=== PATIENT | female | born 1955 ===

== ENCOUNTER 2017-07-19 09:09 | Emergency (ER) | payer MEDICARE ==
[2017-07-19 09:10] VITALS: BMI 24.3
--- NOTE | 2017-07-19 09:51 | C.PDOC ---
History Of Present Illness 62 y/o female with hx hiv, (cd4 >200), past hx of renal failure, on hd for 8 months in 2015, c/o bilateral flank/lower rib cage pain pain x 1 week that is getting worse. no n/v/d, no fever or chills, no cough or sob. pt c/o generalized weakness. Time Seen by Provider: 07/19/17 09:30 Chief Complaint (Nursing): Abdominal Pain History Per: Patient History/Exam Limitations: no limitations Onset/Duration Of Symptoms: Days Current Symptoms Are (Timing): Still Present Past Medical History Reviewed: Historical Data, Nursing Documentation, Vital Signs Vital Signs: Last Vital Signs Temp 98.6 F 07/19/17 12:27 Pulse 62 07/19/17 12:27 Resp 18 07/19/17 12:27 BP 99/64 L 07/19/17 12:27 Pulse Ox 98 07/19/17 13:31 - Medical History PMH: Anemia, Arthritis, Diverticulitis, HIV, HTN, Hypercholesterolemia, Hypothyroidism, End Stage Renal Disease, Chronic Kidney Disease Surgical History: Endoscopy - [facility] Procedures ANGIOPLASTY OF OTHER NON-CORONARY VESSEL(S) (03/15/15) COMPUTER ASSISTED SURGERY WITH FLUOROSCOPY (05/28/15) CONTRAST ARTERIOGRAM NEC (03/15/15) CONTRAST PHLEBOGRAM NEC (06/01/15) DIALYSIS ARTERIOVENOSTOM (11/11/14) DX ULTRASOUND-THORAX NEC (05/28/15) HEMODIALYSIS (06/01/15) PACKED CELL TRANSFUSION (03/23/15) PROCEDURE ON SINGLE VESSEL (03/15/15) REMOV THOR THER DEV NEC (03/23/15) [facility] DIALYSIS SHUNT (01/11/15) VENOUS CATHETERIZATION FOR RENAL DIALYSIS (06/01/15) Family History: States: Unknown Family Hx - Social History Hx Tobacco Use: No Hx Alcohol Use: No Hx Substance Use: No - Immunization History Hx Tetanus Toxoid Vaccination: No Hx Influenza Vaccination: Yes Hx Pneumococcal Vaccination: Yes Review Of Systems Constitutional: Negative for: Fever, Chills Cardiovascular: Negative for: Chest Pain Respiratory: Negative for: Shortness of Breath Gastrointestinal: Negative for: Nausea, Vomiting Neurological: Positive for: Weakness Physical Exam - Physical Exam Appears: Non-toxic, No Acute Distress Skin: Warm, Dry Head: Atraumatic, Normacephalic Neck: Supple Lymphatic: No Adenopathy Chest: No Deformity, No Tenderness Cardiovascular: Rhythm Regular, No Murmur Respiratory: No Accessory Muscle Use, No Stridor, No Wheezing Gastrointestinal/Abdominal: Bowel Sounds (hypoactive), Soft, Tenderness ( bilateral flank ), No Distention, No Guarding, No Rebound Back: No CVA Tenderness Extremity: Normal ROM, No Tenderness, No Pedal Edema, No Calf Tenderness Pulses: Left Dorsalis Pedis: Normal, Right Dorsalis Pedis: Normal Neurological/Psych: Oriented x3, Normal Speech, Normal Cognition ED Course And Treatment - Laboratory Results Result Diagrams: 07/19/17 10:19 07/19/17 10:19 O2 Sat by Pulse Oximetry: 98 - Radiology CXR: Viewed By Me, Read By Radiologist CXR Interpretation: Yes: Other (Interval removal of right center venous dialysis catheter. No acute infiltrate or pleural effusion. Improved inspiratory effort) - CT Scan/US CT Abdomen and Pelvis without intravenous contrast Other Rad Studies (CT/US): Read By Radiologist, Radiology Report Reviewed CT/US Interpretation: FINDINGS: LOWER THORAX: MINIMAL DEPENDENT ATELECTASIS IN THE POSTERIOR LOWER LOBES. LIVER: Unremarkable. No gross lesion or ductal dilatation. GALLBLADDER AND BILE DUCTS: Unremarkable. PANCREAS: Unremarkable. No gross lesion or ductal dilatation. SPLEEN: Unremarkable. ADRENALS: Unremarkable. No mass. KIDNEYS AND URETERS: Unremarkable. No hydronephrosis. No solid mass. VASCULATURE: Unremarkable. No aortic aneurysm. BOWEL: Unremarkable. No obstruction. No gross mural thickening. APPENDIX: Unremarkable. Normal appendix. PERITONEUM: Unremarkable. No free fluid. No free air. LYMPH NODES: Unremarkable. No enlarged lymph nodes. BLADDER: Unremarkable. REPRODUCTIVE: Status post hysterectomy. BONES: No acute fracture. OTHER FINDINGS: None. IMPRESSION: No evidence of urinary calculus or urinary tract obstruction. Status post hysterectomy. Otherwise unremarkable examination. Medical Decision Making Medical Decision Makin62 y/o female with hiv, hypothyroid, prior hx of rf on hd in 2014, with bilateral flank/upper quadrant pain x 1 week with generalized weakness; will check labs, ua, cxr and determine imaging study needed. 118 pm bilateral flank pain, with neg non-con abdoninal ct, neg cxr pain likely musculoskeletal' f/u pmd. Disposition Counseled Patient/Family Regarding: Studies Performed, Diagnosis, Need For Followup, Rx Given - Disposition Referrals: Jose Nuno MD [Medical Doctor] - Disposition: HOME/ ROUTINE Disposition Time: 13:19 Condition: STABLE Additional Instructions: Follow up with Dr Nuno as soon as possible. Return to ER for any worsening symptoms or concerns. Instructions: Flank Pain (ED) Forms: [facility] ([place]), General Discharge Instructions - Clinical Impression Clinical Impression: Pain, flank, bilateral
--- NOTE | 2017-07-19 10:12 | RAD ---
HISTORY: abd pain COMPARISON: Portable chest 06/07/2015. TECHNIQUE: Chest PA and lateral FINDINGS: Interval removal prior right center venous dialysis catheter. LUNGS: No active pulmonary disease. Improved inspiratory effort. PLEURA: No significant pleural effusion identified. No pneumothorax apparent. CARDIOVASCULAR: Normal. OSSEOUS STRUCTURES: No significant abnormalities. VISUALIZED UPPER ABDOMEN: Normal. OTHER FINDINGS: None. IMPRESSION: Interval removal of right center venous dialysis catheter. No acute infiltrate or pleural effusion. Improved inspiratory effort
[2017-07-19 10:23] LABS: RBC URINE 1 /hpf (0-3); URINE BILIRUBIN NEGATIVE (NEGATIVE); URINE BLOOD 2+ (NEGATIVE); URINE COLOR Yellow (YELLOW); URINE GLUCOSE (UA) NORMAL (Normal); URINE KETONE NEGATIVE (NEGATIVE); URINE LEUKOCYTE ESTERASE NEG Leu/uL (Negative); URINE PROTEIN NEGATIVE (NEGATIVE); URINE UROBILINOGEN NORMAL mg/dL (0.2-1.0); WBC URINE 1 /hpf (0-5)
[2017-07-19 10:24] LABS: BASO # 0.1 K/uL (0.0-0.2); BASO % 0.8 % (0.0-2.0); EOS # 0.1 K/uL (0.0-0.7); EOS % 1.2 % (0.0-4.0); HEMATOCRIT 35.1 % (34.0-47.0); LYMPH # 1.7 K/uL (1.0-4.3); MEAN CELL VOLUME 96.6 fL (81.0-99.0); MEAN CORPUSCULAR HEMOGLOBIN 33.7 pg (27.0-31.0); MEAN CORPUSCULAR HGB CONC 34.9 g/dL (33.0-37.0); MEAN PLATELET VOLUME 7.6 fL (7.2-11.7); MONO # 0.6 K/uL (0.0-0.8); RED CELL DISTRIBUTION WIDTH 12.7 % (11.5-14.5); WHITE BLOOD COUNT 6.9 K/uL (4.8-10.8)
[2017-07-19 10:35] LABS: ALB/GLOB RATIO 1.3 (1.0-2.1); BILIRUBIN,TOTAL 0.8 mg/dL (0.2-1.3); CALCIUM 8.8 mg/dl (8.6-10.4); TOTAL PROTEIN 6.6 g/dL (6.3-8.3)
[2017-07-19 12:28] VITALS: BP 99/64; PULSE 62; RESP 18; TEMP 98.6
--- NOTE | 2017-07-19 12:32 | CT ---
PROCEDURE: CT Abdomen and Pelvis without intravenous contrast HISTORY: bilateral flank pain COMPARISON: None. TECHNIQUE: Without contrast.. Contrast Dose: 0 Radiation dose: Total exam DLP = 330.48 mGy-cm. This CT exam was performed using one or more of the following dose reduction techniques: Automated exposure control, adjustment of the mA and/or kV according to patient size, and/or use of iterative reconstruction technique. FINDINGS: LOWER THORAX: MINIMAL DEPENDENT ATELECTASIS IN THE POSTERIOR LOWER LOBES. LIVER: Unremarkable. No gross lesion or ductal dilatation. GALLBLADDER AND BILE DUCTS: Unremarkable. PANCREAS: Unremarkable. No gross lesion or ductal dilatation. SPLEEN: Unremarkable. ADRENALS: Unremarkable. No mass. KIDNEYS AND URETERS: Unremarkable. No hydronephrosis. No solid mass. VASCULATURE: Unremarkable. No aortic aneurysm. BOWEL: Unremarkable. No obstruction. No gross mural thickening. APPENDIX: Unremarkable. Normal appendix. PERITONEUM: Unremarkable. No free fluid. No free air. LYMPH NODES: Unremarkable. No enlarged lymph nodes. BLADDER: Unremarkable. REPRODUCTIVE: Status post hysterectomy BONES: No acute fracture. OTHER FINDINGS: None. IMPRESSION: No evidence of urinary calculus or urinary tract obstruction. Status post hysterectomy. Otherwise unremarkable examination.
[2017-07-19 13:21] VITALS: O2SAT 98
== END 2017-07-19 13:30 | disposition home or self-care (01) ==
LOC: C.ER 09:09
DX: R10.9 Unspecified abdominal pain (principal); I12.0 Hypertensive chronic kidney disease with stage 5 chronic kidney disease or end stage renal disease; N18.6 End stage renal disease; Z99.2 Dependence on renal dialysis; E78.00 Pure hypercholesterolemia, unspecified